=== PATIENT | male | born 1965 | race Caucasian/White ===

== ENCOUNTER 2018-04-29 02:13 | Inpatient (IN) | payer OTHER ==
[2018-04-29 03:37] LABS: ADD MAN DIFF? NO
[2018-04-29 03:39] LABS: BASOPHILS % 0.5 % (0.0-2.0); EOSINOPHILS # 0.2 10^3/ul (0.0-0.5); EOSINOPHILS % 5.6 % (0.0-7.0); HEMATOCRIT 35.7 % (42.0-52.0); HEMOGLOBIN 12.1 g/dl (14.0-18.0); LYMPHOCYTES % 23.1 % (15.0-51.0); MEAN CORPUSCULAR HEMOGLOBIN 27.9 pg (29.0-33.0); MEAN CORPUSCULAR HGB CONC 33.9 g/dl (32.0-37.0); MEAN CORPUSCULAR VOLUME 82.3 fl (82.0-101.0); MEAN PLATELET VOLUME 9.2 fl (7.4-10.4); MONOCYTE # 0.5 10^3/ul (0.3-0.9); MONOCYTES % 12.4 % (0.0-11.0); NEUTROPHIL # 2.5 10^3/ul (1.6-7.5); NEUTROPHILS % 58.2 % (39.0-77.0); PLATELET COUNT 173 10^3/UL (140-415); RED BLOOD COUNT 4.34 10^6/ul (4.70-6.10); RED CELL DISTRIBUTION WIDTH 13.7 % (11.5-14.5)
[2018-04-29 03:39] LABS: WHITE BLOOD COUNT 4.3 10^3/ul (4.8-10.8)
[2018-04-29] MEDS: SODIUM CHLORIDE 0.9% 1L BAG IV* (03:40)
[2018-04-29] MEDS: ACETAMINOPHEN 500 MG TAB PO (03:46)
[2018-04-29] MEDS: PIPER-TAZO 3.375 GM IV (PMX) 100 ML IVPB (03:46)
[2018-04-29 03:58] LABS: INR 0.91; PROTIME 12.4 Sec (11.9-14.9)
[2018-04-29 03:59] LABS: PARTIAL THROMBOPLASTIN TIME 31.8 Sec (23.0-35.0)
[2018-04-29 04:03] LABS: ANION GAP 8 (5-13); BLOOD UREA NITROGEN 11 mg/dl (7-20); C-REACTIVE PROTEIN 2.1 mg/dl (0.0-0.9); CALCIUM 9.2 mg/dl (8.4-10.2); CARBON DIOXIDE 33 mmol/L (21-31); CHLORIDE 100 mmol/L (97-110); CREATINE KINASE 97 IU/L (23-200); CREATININE 0.87 mg/dl (0.61-1.24); Estimated GFR > 60 mL/min (>60); GLUCOSE 142 mg/dl (70-220); POTASSIUM 3.5 mmol/L (3.5-5.1); SODIUM 141 mmol/L (135-144)
[2018-04-29] MEDS: CLINDAMYCIN 900 MG/D5W (PMX) 50 ML IVPB (04:22)
[2018-04-29] MEDS ORDERED: ONDANSETRON 4 MG INJ IV ×2 (04:30→06:30)
[2018-04-29] MEDS ORDERED: ACETAMINOPHEN 325 MG TAB PO (04:30)
[2018-04-29] MEDS: VANCOMYCIN 1 GM (PMX) 250 ML IVPB (05:11)
[2018-04-29 05:54] LABS: ERYTHROCYTE SEDIMENTATION RATE 15 mm/Hr (0-20)
[2018-04-29] MEDS ORDERED: NACL 0.9% 3 ML SYG IV (06:30)
[2018-04-29] MEDS ORDERED: VANCOMYCIN IV PER PHARMACY XX (07:00)
[2018-04-29 07:12] LABS: LACTIC ACID 1.6 mmol/L (0.5-2.0)
[2018-04-29] MEDS: METHADONE 10 MG TAB PO ×2 (09:43→18:02)
[2018-04-29] MEDS: CEFEPIME 1GM/50 ML (PMX) 50 ML IVPB ×2 (09:43→21:34)
[2018-04-29] MEDS: HEPARIN 5,000 UNIT/1 ML VIAL SC ×2 (09:46→21:37)
[2018-04-29 12:27] LABS: ADD UMIC NO; UR ASCORBIC ACID NEGATIVE (NEGATIVE); UR BILIRUBIN (Dip) NEGATIVE (NEGATIVE); UR BLOOD (Dip) NEGATIVE (NEGATIVE); UR CLARITY CLEAR (CLEAR); UR COLOR YELLOW (YELLOW); UR GLUCOSE (Dip) NEGATIVE (NEGATIVE); UR KETONES (Dip) NEGATIVE (NEGATIVE); UR LEUKOCYTE ESTERASE (Dip) NEGATIVE Leu/ul (NEGATIVE); UR NITRITE (Dip) NEGATIVE (NEGATIVE); UR TOTAL PROTEIN (Dip) NEGATIVE (NEGATIVE); UR UROBILINOGEN (Dip) 1+ mg/dL (NEGATIVE)
[2018-04-29] MEDS: VANCOMYCIN HCL 1.5 GM in SOD CHLORIDE 0.9% 250 ML IVPB (13:48)
[2018-04-29] MEDS: CALCIUM CARBONATE 500 MG CHEW TAB PO ×2 (13:48→18:05)
[2018-04-30] MEDS: VANCOMYCIN HCL 1.5 GM in SOD CHLORIDE 0.9% 250 ML IVPB ×2 (01:44→12:59)
[2018-04-30 07:21] LABS: ADD MAN DIFF? NO
[2018-04-30 07:25] LABS: WHITE BLOOD COUNT 6.2 10^3/ul (4.8-10.8)
[2018-04-30 07:25] LABS: BASOPHILS % 0.3 % (0.0-2.0); EOSINOPHILS # 0.3 10^3/ul (0.0-0.5); HEMATOCRIT 40.3 % (42.0-52.0); HEMOGLOBIN 13.8 g/dl (14.0-18.0); LYMPHOCYTES # 1.6 10^3/ul (0.8-2.9); LYMPHOCYTES % 25.4 % (15.0-51.0); MEAN CORPUSCULAR HEMOGLOBIN 27.9 pg (29.0-33.0); MEAN CORPUSCULAR HGB CONC 34.2 g/dl (32.0-37.0); MEAN CORPUSCULAR VOLUME 81.4 fl (82.0-101.0); MEAN PLATELET VOLUME 9.6 fl (7.4-10.4); MONOCYTE # 0.8 10^3/ul (0.3-0.9); MONOCYTES % 12.4 % (0.0-11.0); NEUTROPHIL # 3.6 10^3/ul (1.6-7.5); NEUTROPHILS % 57.7 % (39.0-77.0); PLATELET COUNT 189 10^3/UL (140-415); RED BLOOD COUNT 4.95 10^6/ul (4.70-6.10); RED CELL DISTRIBUTION WIDTH 13.3 % (11.5-14.5)
[2018-04-30 07:46] LABS: ALANINE AMINOTRANSFERASE 32 IU/L (13-69); ALBUMIN 4.1 g/dl (3.3-4.9); ALBUMIN/GLOBULIN RATIO 1.24; ALKALINE PHOSPHATASE 100 IU/L (42-121); ANION GAP 9 (5-13); ASPARTATE AMINO TRANSFERASE 32 IU/L (15-46); BILIRUBIN,INDIRECT 0.4 mg/dl (0-1.1); BILIRUBIN,TOTAL 0.4 mg/dl (0.2-1.3); BLOOD UREA NITROGEN 9 mg/dl (7-20); CALCIUM 9.4 mg/dl (8.4-10.2); CARBON DIOXIDE 27 mmol/L (21-31); CHLORIDE 102 mmol/L (97-110); CREATININE 0.95 mg/dl (0.61-1.24); Estimated GFR > 60 mL/min (>60); GLUCOSE 87 mg/dl (70-220); PHOSPHORUS 3.6 mg/dl (2.5-4.9); POTASSIUM 3.7 mmol/L (3.5-5.1); SODIUM 138 mmol/L (135-144); TOTAL PROTEIN 7.4 g/dl (6.1-8.1)
[2018-04-30 08:14] LABS: CHOLESTEROL 158 mg/dl (100-200)
[2018-04-30 08:14] LABS: CHOL/HDL RATIO 3.2 RATIO; HDL CHOLESTEROL 48 mg/dl (28-71); LDL CHOLESTEROL,CALCULATED 87 mg/dl; TRIGLYCERIDES 113 mg/dl (0-149)
[2018-04-30 08:17] LABS: PROSTATE SPECIFIC ANTIGEN 0.5 ng/ml (0.0-4.0)
[2018-04-30] MEDS: METHADONE 10 MG TAB PO (08:37)
[2018-04-30] MEDS: CEFEPIME 1GM/50 ML (PMX) 50 ML IVPB (08:38)
[2018-04-30] MEDS: CALCIUM CARBONATE 500 MG CHEW TAB PO ×3 (08:38→18:18)
[2018-04-30] MEDS: HEPARIN 5,000 UNIT/1 ML VIAL SC ×2 (08:41→20:25)
[2018-04-30] MEDS: ACETAMINOPHEN 325 MG TAB PO ×2 (12:58→20:22)
[2018-04-30 14:59] LABS: IRON 76 ug/dl (35-150)
[2018-04-30 15:09] LABS: % IRON SATURATION 22 % SAT (22-52); TOTAL IRON BINDING CAPACITY 348 ug/dl (241-421)
[2018-04-30 15:36] LABS: FERRITIN 37.8 ng/ml (11.1-264.0)
[2018-05-01 00:45] LABS: VANCOMYCIN,TROUGH 15.4 ug/ml (10.0-20.0)
[2018-05-01] MEDS: VANCOMYCIN HCL 1.5 GM in SOD CHLORIDE 0.9% 250 ML IVPB ×2 (00:59→13:45)
[2018-05-01] MEDS ORDERED: LEVOFLOXACIN 500 MG TAB (04:05)
[2018-05-01] MEDS: LEVOFLOXACIN 500 MG TAB PO (05:27)
[2018-05-01] MEDS: CALCIUM CARBONATE 500 MG CHEW TAB PO ×2 (09:36→13:45)
[2018-05-01] MEDS: METHADONE 10 MG TAB PO (09:36)
[2018-05-01] MEDS: HEPARIN 5,000 UNIT/1 ML VIAL SC (09:37)
== END 2018-05-01 17:20 | disposition home or self-care (01) | DRG 603 ==
LOC: E/R 02:13 → PP2 04:25
DX: L03.115 Cellulitis of right lower limb (principal); D64.9 Anemia, unspecified; Z72.0 Tobacco use; F11.90 Opioid use, unspecified, uncomplicated
CPT/HCPCS: 36415; 73590; 80048; 80053; 80061; 80202; 81003; 82550; 82728; 83036; 83540; 83605; 83735; 84100; 84153; 84154; 85025; 85610; 85651; 85730; 86140; 87040; 87086; 90686; 93971; 96374; 96375; 99291-25